=== PATIENT | female | born 1995 | race African-American/Black ===

== ENCOUNTER 2021-10-27 09:14 | Emergency (ER) | payer SELFPAY ==
[~2021-10-27] VITALS: Ht 152.4 cm; Wt 77.0 kg
[2021-10-27 09:16] VITALS: BP 131/92
[2021-10-27] MEDS ORDERED: IBUPROFEN 400MG TABLET PO ONE (09:30)
[2021-10-27] MEDS ORDERED: ACETAMINOPHEN 325MG TABLET PO ONE (09:30)
[2021-10-27] MEDS ORDERED: TOPUD PO (09:38)
== END 2021-10-27 10:09 | disposition home or self-care (01) ==
LOC: ER 09:43
DX: B34.9 Viral infection, unspecified (principal); Z20.822 Contact with and (suspected) exposure to COVID-19; R50.9 Fever, unspecified; R05.9 Cough, unspecified
CPT/HCPCS: 87426; 99283

== ENCOUNTER 2021-11-08 00:23 | Emergency (ER) | payer SELFPAY ==
[~2021-11-08] VITALS: Ht 152.4 cm; Wt 92.4 kg
[~2021-11-08 00:23] MED LIST: TOPUD PO
[2021-11-08 01:06] LABS: CLARITY URINE CLEAR (CLEAR); COLOR URINE YELLOW (YELLOW); KETONES URINE NEGATIVE (NEGATIVE); LEUKOCYTE ESTERASE URINE NEGATIVE (NEGATIVE); NITRITE URINE NEGATIVE (NEGATIVE); OCCULT BLOOD URINE NEGATIVE (NEGATIVE); PROTEIN URINE NEGATIVE (NEGATIVE); SPECIFIC GRAVITY URINE 1.009 (1.005-1.030); UROBILINOGEN URINE 0.2 E.U./dL (0.2-1.0)
[2021-11-08] MEDS ORDERED: SODIUM CHLORIDE 0.9% 1,000 ML IV ONE (01:15)
[2021-11-08 01:29] LABS: BASOPHILS % 0.2 % (0.0-2.0); EOSINOPHILS % 1.9 % (0.0-5.0); HEMATOCRIT. 33.1 % (36.0-48.0); HEMOGLOBIN. 10.8 g/dL (12.0-16.0); LYMPHOCYTES % 27.3 % (20.0-50.0); MEAN CORPUSCULAR HEMOGLOBIN 24.5 pg (28.0-32.0); MEAN CORPUSCULAR VOLUME 74.6 fL (81.0-99.0); MEAN PLATELET VOLUME 7.3 fl (7.4-10.4); MONOCYTES % 13.3 % (2.0-8.0); NEUTROPHILS % 57.3 % (40.0-76.0); PLATELET 440 x1000/uL (130-400); RED BLOOD CELL COUNT 4.43 mill/uL (4.2-5.4); RED CELL DISTRIBUTION WIDTH 13.9 % (11.6-14.6)
[2021-11-08 01:36] LABS: CHLORIDE 107 mEq/L (98-107)
[2021-11-08 01:39] LABS: HCG SCREEN NEGATIVE
[2021-11-08 01:40] LABS: ETHANOL BLOOD < 10 mg/dL
[2021-11-08 01:46] LABS: *AMPHETAMINES SCREEN URINE NEGATIVE (NEGATIVE); *BARBITURATES SCREEN URINE NEGATIVE (NEGATIVE); *BENZODIAZEPINES SCREEN URINE NEGATIVE (NEGATIVE)
[2021-11-08 01:47] LABS: *COCAINE SCREEN URINE NEGATIVE (NEGATIVE); CANNABINOID URINE SCREEN NEGATIVE (NEGATIVE); METHADONE URINE SCREEN NEGATIVE (NEGATIVE); OPIATES URINE SCREEN NEGATIVE (NEGATIVE); PHENCYCLIDINE URINE SCREEN NEGATIVE (NEGATIVE)
[2021-11-08 03:40] VITALS: BP 139/85
== END 2021-11-08 04:02 | disposition home or self-care (01) ==
LOC: ER 00:23
DX: Z13.9 Encounter for screening, unspecified (principal)
CPT/HCPCS: 36415; 71045; 80053; 80178; 80305; 80307; 80320; 80329; 81003; 81025; 84703; 85025; 93005; 96360; 99285; J7030; G0480